=== PATIENT | male | born 1970 | race Hispanic/Latino ===

== ENCOUNTER 2017-12-26 06:26 | Inpatient (IN) | payer OTHER ==
[2017-12-19 14:06] VITALS: BMI 26.6
[2017-12-26] MEDS ORDERED: Phenylephrine 10 mg/ml Inj ONE ×2 (07:19→10:51)
[2017-12-26] MEDS ORDERED: Etomidate 20 mg/10ml Inj IV ONE (07:19)
[2017-12-26] MEDS ORDERED: Rocuronium 10 mg/ml (5 ml) ONE ×3 (07:19→11:35)
[2017-12-26] MEDS ORDERED: Propofol 10 mg/ml Inj (20 ML) ONE (07:19)
[2017-12-26] MEDS ORDERED: Succinylcholine 200 mg/10 ml Inj IV ONE (07:19)
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
[2017-12-26] MEDS ORDERED: Bupivacaine HCl 0.5% PF (30 ml) Inj ONE (07:27)
[2017-12-26] MEDS ORDERED: Neostigmine 1:1000 (1 mg/ml) Inj ONE (07:28)
[2017-12-26] MEDS ORDERED: ceFAZolin IV 2 gm in Dextrose 4 GM/100 ML BAG IVPB ONE (07:30)
[2017-12-26] MEDS ORDERED: Absorbable Gelatin Sponge Size 100 ONE (07:30)
[2017-12-26] MEDS ORDERED: Bacitracin Ointment 30 GM TUBE ONE (07:31)
[2017-12-26] MEDS ORDERED: Thrombin Topical 5,000 Int Units Spray Kit ONE (07:31)
[2017-12-26] MEDS ORDERED: EPINEPHrine 1 mg/ml (1:1000) Inj ONE (07:36)
[2017-12-26 07:57] LABS: HEMOGLOBIN 13.5 g/dL (12.0-18.0); MEAN CELL VOLUME 100.2 fl (80.0-94.0); MEAN CORPUSCULAR HEMOGLOBIN 34.7 pg (27.0-31.0); MEAN CORPUSCULAR HGB CONC 34.6 g/dL (33.0-37.0); RBC 3.89 Mil/uL (4.40-5.90); RED CELL DISTRIBUTION WIDTH 12.8 % (11.5-14.5); WHITE BLOOD COUNT 4.2 K/uL (4.8-10.8)
[2017-12-26] MEDS ORDERED: Esmolol 100 mg/10ml Inj IV ONE (08:15)
[2017-12-26] MEDS ORDERED: Midazolam 2 MG/2 ML VIAL ONE (08:21)
[2017-12-26] MEDS ORDERED: Tranexamic Acid 1,000 MG in Sodium Chloride 0.9% 100 ML IVPB SCH (08:35)
[2017-12-26] MEDS ORDERED: Sevoflurane - Inhalation Anesthetic Liq (250 ml) ONE (09:00)
[2017-12-26] MEDS ORDERED: Lactated Ringer's 1,000 ML IV ONE ×5 (10:18→14:50)
[2017-12-26] MEDS ORDERED: Sodium Chloride 0.9% 1,000 ML IV SCH (12:45)
[2017-12-26] MEDS ORDERED: HYDROmorphone 0.5 mg/0.5 ml ISec IVP PRN (12:55)
--- NOTE | 2017-12-26 12:58 | PCM.ANESB1 ---
Interscalene Block - Brachial Plexus Date of Procedure: 12/26/17 Anesthesiologist: Andreas Pre-Procedure Diagnosis: Right shoulder severe OA Post-Procedure Diagnosis: Same Procedure Performed: Interscalene Block of Brachial Plexus Right - Procedure Interscalene Block of Brachial Plexus: This procedure was explained to the patient that it is for post-operative pain management. Consent was obtained after a thorough discussion with the patient regarding the benefits and possible complications of local anesthetic block of the Brachial Plexus at the Interscalene area. The patient was brought to the Operating Room and standard monitors were applied. Time out was held with the circulating nurse to confirm the correct surgery and appropriate block. After applying Oxygen by nasal cannula and administering IV Sedation, the patient's head was gently rotated away from the __right____operative shoulder and the anterior scalene groove was carefully palpated. The ultrasound transducer was then applied to the skin in the transverse plane and the brachial plexus was visualized lateral to the carotid artery and in between the anterior and middle scalene muscles. After identification,the anterior lateral portion of the neck was prepped with Chloraprep and Lidocaine 1% was injected subcutaneously for topical analgesia. At this point, a # 22 gauge Stimuplex 2 inches insulated needle was inserted into the interscalene groove and directed in a caudal and midline direction. The needle was inserted lateral to the ultrasound transducer in-plane towards the brachial plexus in a [id number] direction. Needle advancement was performed carefully under direct ultrasound visualization. Nerve stimulator was used and twitched of the affected extremity including the hand brachialis muscles, biceps and the deltoid was obtained at a current of _0.4____MA. After repeated negative aspiration,__2___cc of__0.5%___,__bupivicaine with 1:200,000 epinephrine were injected and this was followed with __28___cc of __0.5___% ___bupivicaine with 1:200,000 epinephrine . Under ultrasound guidance the local anesthetics were observed surrounding the roots of the brachial plexus. The needle was removed intact. The patient had stable vital signs, was conscious and in no apparent distress. The patient tolerated the interscalene block of the bracheal plexus well with stable vital signs and was prepared for subsequent surgery.
--- NOTE | 2017-12-26 14:22 | RAD ---
PROCEDURE: Radiographs of the Right Shoulder HISTORY: s/p R TSR COMPARISON: No prior. FINDINGS: The patient is status post total right shoulder arthroplasty with prosthetic components seen in good alignment. A small amount expected air and fluid seen adjacent to the surgical bed IMPRESSION: Status post total right shoulder arthroplasty.
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
[2017-12-26] MEDS: Lactated Ringer's 1,000 ML IV SCH ×2 (15:00→23:43)
--- NOTE | 2017-12-26 15:55 | PCM.SURG1 ---
Surgeon's Initial Post Op Note - Surgeon's Notes Surgeon: Sherrie [employer] Operations Manager: SERA Hwang/ 2nd assist Oseas Koo PA-C Type of Anesthesia: General Endo, Block Regional Anesthesia Administered By: DR Jacques Pre-Operative Diagnosis: post- traumatic derangement R shoulder. post traumatic arthritis R shoulder Operative Findings: SEVERE glenohumeral arthritis R shoulder. rotator cuff tear R shoulder. loose bodies R shoulder/osteophytes Post-Operative Diagnosis: same Operation Performed: R TSR. repair rotator cuff tear. biceps tenodesis. arthrotomy/excision loose bodies Specimen/Specimens Removed: tendon/bone/losse bodies Estimated Blood Loss: EBL {In ML}: 60 Blood Products Given: N/A Drains Used: No Drains Post-Op Condition: Good Date of Surgery/Procedure: 12/26/17 Time of Surgery/Procedure: 09:35 (time in room/anaesthesia indUCTION time 9:35)
[2017-12-26] MEDS: ceFAZolin IV 2 gm in Dextrose 2 GM/50 ML BAG IVPB SCH ×2 (17:05→23:42)
[2017-12-26] MEDS: Oxycodone/Acetaminophen 5/325 mg Tab PO PRN ×2 (17:34→21:40)
[2017-12-27 00:06] VITALS: RESP 18
[2017-12-27] MEDS: Oxycodone/Acetaminophen 5/325 mg Tab PO PRN ×2 (04:25→07:48)
[2017-12-27] MEDS ORDERED: HYDROmorphone 0.5 mg/0.5 ml ISec IVP PRN ×2 (05:15→08:09)
[2017-12-27 05:37] LABS: BLOOD UREA NITROGEN 18 mg/dl (9-20); CALCIUM 8.8 mg/dL (8.4-10.2); GFR AFRICAN-AMERICAN > 60; GFR NON-AFRICAN AMERICAN > 60
[2017-12-27 05:39] LABS: HEMOGLOBIN 12.8 g/dL (12.0-18.0); MEAN CELL VOLUME 100.3 fl (80.0-94.0); MEAN CORPUSCULAR HGB CONC 34.9 g/dL (33.0-37.0); RBC 3.64 Mil/uL (4.40-5.90); RED CELL DISTRIBUTION WIDTH 12.9 % (11.5-14.5); WHITE BLOOD COUNT 11.2 K/uL (4.8-10.8)
[2017-12-27 05:47] LABS: INR 1.1 (0.9-1.2); PARTIAL THROMBOPLASTIN TIME 25.4 Seconds (25.6-37.1); PROTHROMBIN TIME 11.7 Seconds (9.8-13.1)
--- NOTE | 2017-12-27 07:39 | CP.PCM.PN ---
Subjective - Date & Time of Evaluation Date of Evaluation: 12/27/17 Time of Evaluation: 07:39 - Subjective Subjective: Patient seen and examined with Dr. Balderas. Pain is severe beginning this AM due to nerve block wearing off, not controlled with current pain regimen. No acute events overnight. Objective - Vital Signs/Intake and Output Vital Signs (last 24 hours): Temp Pulse Resp BP Pulse Ox 97.5 F L 79 18 156/101 H 98 12/27/17 05:07 12/27/17 05:50 12/27/17 05:07 12/27/17 05:50 12/27/17 05:07 - Medications Medications: Current Medications Acetaminophen (Tylenol 325mg Tab) 650 mg PO Q4 PRN PRN Reason: Fever 101 degrees fahrenheit Docusate Sodium (Colace) 100 mg PO BID [facility] Last Admin: 12/26/17 17:33 Dose: 100 mg Hydromorphone HCl (Dilaudid) 1 mg IVP Q4 PRN PRN Reason: Pain, severe (8-10) Last Admin: 12/27/17 05:18 Dose: 1 mg Tranexamic Acid 1,000 mg/ (Sodium Chloride) 110 mls @ 10 mls/min IVPB Q2 [facility] Sodium Chloride (Sodium Chloride 0.9%) 1,000 mls @ 80 mls/hr IV .[id number] [facility] Stop: 12/27/17 12:36 Lactated Ringer's (Lactated Ringer's) 1,000 mls @ 100 mls/hr IV .Q10H [facility] Last Admin: 12/26/17 23:43 Dose: 100 mls/hr Oxycodone/Acetaminophen (Percocet 5/325 Mg Tab) 2 tab PO Q4 PRN PRN Reason: Pain, moderate (4-7) Stop: 12/29/17 12:36 Last Admin: 12/27/17 04:25 Dose: 2 tab - Labs Labs: 12/27/17 04:20 12/27/17 04:20 PT 11.7 Seconds (9.8-13.1) 12/27/17 04:20 INR 1.1 (0.9-1.2) 12/27/17 04:20 APTT 25.4 Seconds (25.6-37.1) L 12/27/17 04:20 - Extremities Exam Additional comments: RUE: shoulder in immobilizer, Dressings CDI, mild swelling, no drainage sensation intact AXN/MN/UN/RN motor intact MN/UN/RN radial pulse intact comps soft NT Assessment and Plan (1) Post-traumatic osteoarthritis, right shoulder Assessment & Plan: POD#1 s/p R TSR -recommend pain mgmt consult for repeat nerve block and pain med adjustments -strict shoulder imm, not to be removed -orthopedically stable to discharge home once cardiac cleared and pain controlled -f/u in Dr. Balderas's office this Saturday 12/30 -above case and plan d/w Dr. Balderas in agreement Status: Acute
[2017-12-27] MEDS ORDERED: HYDROmorphone 0.5 mg/0.5 ml ISec IVP STA (08:07)
[2017-12-27 08:20] VITALS: O2SAT 96
[2017-12-27] MEDS ORDERED: Enoxaparin 40 mg Syringe SC SCH (09:00)
--- NOTE | 2017-12-27 09:08 | CP.PCM.PN ---
Subjective - Date & Time of Evaluation Date of Evaluation: 12/27/17 Time of Evaluation: 08:15 - Subjective Subjective: NO CHEST PAIN OR SOB SEVERE PAIN AT RIGHT SHOULDER SURGICAL SITE Objective - Vital Signs/Intake and Output Vital Signs (last 24 hours): Temp Pulse Resp BP Pulse Ox 98.2 F 55 L 18 156/101 H 96 12/27/17 08:20 12/27/17 08:20 12/27/17 08:20 12/27/17 05:50 12/27/17 08:20 - Medications Medications: Current Medications Acetaminophen (Tylenol 325mg Tab) 650 mg PO Q4 PRN PRN Reason: Fever 101 degrees fahrenheit Docusate Sodium (Colace) 100 mg PO BID [facility] Last Admin: 12/26/17 17:33 Dose: 100 mg Hydromorphone HCl (Dilaudid) 1 mg IVP Q4 PRN PRN Reason: Pain, severe (8-10) Last Admin: 12/27/17 05:18 Dose: 1 mg Hydromorphone HCl (Dilaudid) 0.5 mg IVP Q5M PRN PRN Reason: Pain, moderate (4-7) Stop: 12/27/17 10:09 Sodium Chloride (Sodium Chloride 0.9%) 1,000 mls @ 80 mls/hr IV .[id number] [facility] Stop: 12/27/17 12:36 Lactated Ringer's (Lactated Ringer's) 1,000 mls @ 100 mls/hr IV .Q10H [facility] Last Admin: 12/26/17 23:43 Dose: 100 mls/hr Oxycodone/Acetaminophen (Percocet 5/325 Mg Tab) 2 tab PO Q4 PRN PRN Reason: Pain, moderate (4-7) Stop: 12/29/17 12:36 Last Admin: 12/27/17 07:48 Dose: 2 tab - Labs Labs: 12/27/17 04:20 12/27/17 04:20 PT 11.7 Seconds (9.8-13.1) 12/27/17 04:20 INR 1.1 (0.9-1.2) 12/27/17 04:20 APTT 25.4 Seconds (25.6-37.1) L 12/27/17 04:20 - Respiratory Exam Respiratory Exam: Clear to Ausculation Bilateral - Cardiovascular Exam Cardiovascular Exam: REGULAR RHYTHM, +S1, +S2 - Extremities Exam Additional comments: NO EDEMA IN LE - Additional Findings Additional findings: PLATE COLORER NSR Assessment and Plan - Assessment and Plan (Free Text) Assessment: S/P TOTAL RIGHT SHOULDER REPLACEMENT HOC HISTORY OF HYPERTENSION PRIOR TO WEIGHT LOSS Plan: CONTINUE IV FLUIDS AND PAIN MEDICATIONS
--- NOTE | 2017-12-27 09:32 | CARD ---
APPROVED REPORT EKG Measurement Heart [id number] <Conclusion> Sinus bradycardia Nonspecific intraventricular conduction delay Nonspecific T wave abnormality Abnormal ECG
--- NOTE | 2017-12-27 09:51 | CP.PCM.DIS ---
Provider - Provider Date of Admission: 12/26/17 08:52 Attending physician: Timi Purdy Primary care physician: Car Balderas III, MD Consults: ortho consult cardiology consult Time Spent in preparation of Discharge (in minutes): 15 Hospital Course - Lab Results Lab Results: Most Recent Lab Values WBC 11.2 K/uL (4.8-10.8) H D 12/27/17 04:20 RBC 3.64 Mil/uL (4.40-5.90) L 12/27/17 04:20 Hgb 12.8 g/dL (12.0-18.0) 12/27/17 04:20 Hct 36.5 % (35.0-51.0) 12/27/17 04:20 MCV 100.3 fl (80.0-94.0) H 12/27/17 04:20 MCH 35.0 pg (27.0-31.0) H 12/27/17 04:20 MCHC 34.9 g/dL (33.0-37.0) 12/27/17 04:20 RDW 12.9 % (11.5-14.5) 12/27/17 04:20 Plt Count 126 K/uL (130-400) L 12/27/17 04:20 PT 11.7 Seconds (9.8-13.1) 12/27/17 04:20 INR 1.1 (0.9-1.2) 12/27/17 04:20 APTT 25.4 Seconds (25.6-37.1) L 12/27/17 04:20 Sodium 137 mmol/l (132-148) 12/27/17 04:20 Potassium 4.3 MMOL/L (3.6-5.0) 12/27/17 04:20 Chloride 103 mmol/L (98-107) 12/27/17 04:20 Carbon Dioxide 25 mmol/L (22-30) 12/27/17 04:20 Anion Gap 13 (10-20) 12/27/17 04:20 BUN 18 mg/dl (9-20) 12/27/17 04:20 Creatinine 1.1 mg/dl (0.8-1.5) 12/27/17 04:20 Est GFR ( Amer) > 60 12/27/17 04:20 Est GFR (Non-Af Amer) > 60 12/27/17 04:20 Random Glucose 108 mg/dL (75-110) 12/27/17 04:20 Calcium 8.8 mg/dL (8.4-10.2) 12/27/17 04:20 Blood Type A POSITIVE 12/26/17 07:39 Blood Type Confirm A POSITIVE 12/26/17 08:35 Antibody Screen Negative 12/26/17 07:39 Crossmatch See Detail 12/26/17 07:39 BBK History Checked No verified bt 12/26/17 07:39 - Hospital Course Hospital Course: 47 years old male with hx of Hypertrophic Obstructive Cardiomyopathy, Back surgery gastric Sleeve and Osteoarthritis of the right shoulder frankie admitted for elective right total shoulder replacement after failing conservative treatment . Ortho, pain management and cardiology were consulted .Patient underwent right total shoulder replacement surgery. Nerve block was applied during surgery and post op day 1 for pain control. Patient cleared by ortho for discharge home. Started on dilaudid 4 mg po Q4 PRN for severe pain and Percost 5/325 mg po Q6 prn for moderate pain . Counselled patient to stop taking any other pain medications. Counselled on sedative effect of opioids . he will need to follow up with Dr. Balderas 12/30 at his office.Will discharge patient home 1. Osteoarthritis right shoulder s/p total shoulder replacement had nerve block during surgery and post op anesthesia consulted for pain management Will d/c on dilaudid and percoset prn Follow up with Dr. Balderas post op 12/30 2. Uncontrolled HTN most likely secondary to pain Given Hydralazine 10 mg IV x 1 dose pain management Follow up with PMD 3. Intractable pain to right shoulder nerve black and narcotics PRN 4. Hypertrophic Obstructive Cardiomyopathy cardiology consult with Dr. Law appreciated Follow up with Director Acute Dr Chuy Montilla on discharge Discharge Exam - Head Exam Head Exam: ATRAUMATIC, NORMAL INSPECTION, NORMOCEPHALIC - Eye Exam Eye Exam: PERRL Pupil Exam: NORMAL ACCOMODATION - ENT Exam ENT Exam: Mucous Membranes Moist, Normal Exam - Neck Exam Neck exam: Full Rom, Normal Inspection - Respiratory Exam Respiratory Exam: Clear to PA & Lateral, NORMAL BREATHING PATTERN. absent: Rales, Rhonchi, Wheezes - Cardiovascular Exam Cardiovascular Exam: REGULAR RHYTHM, RRR, +S1, +S2. absent: JVD - GI/Abdominal Exam GI & Abdominal Exam: Normal Bowel Sounds, Soft. absent: Distended, Guarding, Rebound, Tenderness - Rectal Exam Rectal Exam: Deferred - Extremities Exam Extremities exam: normal capillary refill, normal inspection, pedal pulses present Additional comments: left arm on sling moving his fingers, pulses intact capillary refill intact warm to touch - Back Exam Back exam: NORMAL INSPECTION - Neurological Exam Neurological exam: Alert, CN II-XII Intact, Oriented x3, Reflexes Normal - Psychiatric Exam Psychiatric exam: Normal Affect, Normal Mood - Skin Skin Exam: Dry, Intact, Normal Color, Warm Discharge Plan - Discharge Medications Prescriptions: HYDROmorphone [Dilaudid] 4 mg PO Q4 PRN #20 tab PRN Reason: Pain, Severe (8-10) oxyCODONE/Acetaminophen [Percocet 5/325 mg Tab] 1 tab PO Q6 PRN #20 tab PRN Reason: Pain, Moderate (4-7) - Follow Up Plan Condition: GOOD Disposition: HOME/ ROUTINE Patient education suggested?: Yes Referrals: Car Balderas III, MD [Primary Care Provider] -
--- NOTE | 2017-12-27 10:34 | CP.PCM.CON ---
History of Present Illness - History of Present Illness History of Present Illness: This is a 47 year old gentleman POD #1 following a right total shoulder replacement who experienced severe pain after the resolution of his right interscalene block this morning. Review of Systems - Review of Systems All systems: reviewed and no additional remarkable complaints except Review of Systems: Intractable pain - Constitutional Constitutional: As Per HPI - EENT Eyes: As Per HPI - Cardiovascular Cardiovascular: As Per HPI - Respiratory Respiratory: As Per HPI Additional comments: No SOB reported after right interscalene block on 12/26/17 - Musculoskeletal Musculoskeletal: Other Additional comments: Severe right shoulder pain at rest and exacerbated by movement. Past Patient History - Past Medical History & Family History Past Medical History?: Yes Past Family History: Reviewed and not pertinent - Past Social History Smoking Status: Former Smoker Chewing Tobacco Use: No Cigar Use: No Alcohol: Social Drugs: Denies Home Situation {Lives}: With Family - CARDIAC Hx Cardiac Disorders: Yes (HOC) Hx Hypertension: Yes (Resolved after gastric bypass) - PULMONARY Hx Respiratory Disorders: No - NEUROLOGICAL Hx Neurological Disorder: Yes Other/Comment: Ulnar neuropathy - HEENT Hx HEENT Problems: No - RENAL Hx Chronic Kidney Disease: No - ENDOCRINE/METABOLIC Hx Endocrine Disorders: No - HEMATOLOGICAL/ONCOLOGICAL Hx Blood Disorders: No - INTEGUMENTARY Hx Dermatological Problems: No - MUSCULOSKELETAL/RHEUMATOLOGICAL Hx Musculoskeletal Disorders: Yes Hx Back Pain: Yes Hx Osteoarthritis: Yes Other/Comment: Lumbar fusion - GASTROINTESTINAL Hx Gastrointestinal Disorders: No - GENITOURINARY/GYNECOLOGICAL Hx Genitourinary Disorders: No - PSYCHIATRIC Hx Psychophysiologic Disorder: No - SURGICAL HISTORY Hx Surgeries: Yes Hx Appendectomy: Yes Hx Arthroscopy: Yes (right shoulder-2011 arthroscopic) Hx Gastric Bypass Surgery: Yes Hx Musculoskeletal Surgery: Yes (L-spine surgery) - ANESTHESIA Hx Anesthesia: Yes Hx Anesthesia Reactions: No Meds Home Medications: Home Medication List Medication Instructions Recorded Confirmed Type Oxycodone HCl [Oxycontin] 10 mg PO Q12 #10 tab.er.12h 12/27/17 Rx oxyCODONE [oxyCODONE Immediate 10 mg PO Q6 PRN #20 tab 12/27/17 Rx Release Tab] Allergies/Adverse Reactions: Allergies Allergy/AdvReac Type Severity Reaction Status Date / Time bacitracin Allergy RASH Verified 12/19/17 14:06 - Medications Medications: Current Medications Acetaminophen (Tylenol 325mg Tab) 650 mg PO Q4 PRN PRN Reason: Fever 101 degrees fahrenheit Docusate Sodium (Colace) 100 mg PO BID [facility] Last Admin: 12/26/17 17:33 Dose: 100 mg Hydromorphone HCl (Dilaudid) 1 mg IVP Q4 PRN PRN Reason: Pain, severe (8-10) Last Admin: 12/27/17 05:18 Dose: 1 mg Hydromorphone HCl (Dilaudid) 0.5 mg IVP Q5M PRN PRN Reason: Pain, moderate (4-7) Stop: 12/27/17 10:09 Sodium Chloride (Sodium Chloride 0.9%) 1,000 mls @ 80 mls/hr IV .[id number] [facility] Stop: 12/27/17 12:36 Lactated Ringer's (Lactated Ringer's) 1,000 mls @ 100 mls/hr IV .Q10H [facility] Last Admin: 12/26/17 23:43 Dose: 100 mls/hr Oxycodone/Acetaminophen (Percocet 5/325 Mg Tab) 2 tab PO Q4 PRN PRN Reason: Pain, moderate (4-7) Stop: 12/29/17 12:36 Last Admin: 12/27/17 07:48 Dose: 2 tab Home medications: Vicodin 5/325 1-2 tabs daily Nucynta 75 mg BID Physical Exam - Extremities Exam Additional comments: RUE in adduction sling. Severe right shoulder pain. Unable to examine due to pain - Back Exam Back exam: NORMAL INSPECTION Results - Vital Signs Recent Vital Signs: Last Vital Signs Temp 98.2 F 12/27/17 08:20 Pulse 55 L 12/27/17 08:20 Resp 18 12/27/17 08:20 BP 156/101 H 12/27/17 05:50 Pulse Ox 96 12/27/17 08:20 - Labs Result Diagrams: 12/27/17 04:20 12/27/17 04:20 Labs: Laboratory Results - last 24 hr 12/26/17 12/27/17 12/27/17 08:35 04:20 04:20 WBC 11.2 H D RBC 3.64 L Hgb 12.8 Hct 36.5 MCV 100.3 H MCH 35.0 H MCHC 34.9 RDW 12.9 Plt Count 126 L PT 11.7 INR 1.1 APTT 25.4 L Sodium Potassium Chloride Carbon Dioxide Anion Gap BUN Creatinine Est GFR ( Amer) Est GFR (Non-Af Amer) Random Glucose Calcium Blood Type Confirm A POSITIVE 12/27/17 04:20 WBC RBC Hgb Hct MCV MCH MCHC RDW Plt Count PT INR APTT Sodium 137 Potassium 4.3 Chloride 103 Carbon Dioxide 25 Anion Gap 13 BUN 18 Creatinine 1.1 Est GFR ( Amer) > 60 Est GFR (Non-Af Amer) > 60 Random Glucose 108 Calcium 8.8 Blood Type Confirm - EKG Data Rate: Bradycardia (Hypertension treated by primary team prior to nerve block) Assessment & Plan - Assessment and Plan (Free Text) Assessment: 47 y/o gentleman POD #1 following right total shoulder replacement with severe right shoulder following resolution of peripheral nerve block this morning. Plan: Discussed with Dr. Carmona from pain management. Will repeat right interscalene block following confirmed NPO status. Further recommendations to follow for discharge pain control. Patient instructed to follow up with his own pain management physician, Dr. Hagan, from [facility] within one week of discharge
[2017-12-27] MEDS: Lactated Ringer's 1,000 ML IV SCH (11:41)
[2017-12-27 12:36] VITALS: BP 174/96; PULSE 68; TEMP 97.3
--- NOTE | 2017-12-28 10:02 | OP ---
PROCEDURE DATE: 12/26/2017 PREOPERATIVE DIAGNOSES: 1. Severe posttraumatic osteoarthritis to the right shoulder. 2. Rotator cuff tear, less than 1 cm. 3. Biceps tendon attenuation. 4. Glenohumeral arthritis, osteophytes and loose bodies, right shoulder. PROCEDURES: 1. Complex right total shoulder replacement arthroplasty, anatomic type. 2. Biceps tenodesis. 3. Rotator cuff repair. 4. Arthrotomy, excision of loose bodies, and osteophytes. SURGEON: Car Balderas MD. JURY CONSULTANT: Charito Valencia, certified registered nursing [employer]. SECOND PRINT LINE FEEDER: Oseas Koo PA-C. TYPE OF ANESTHESIA: General endotracheal anesthesia and regional block. ANESTHESIA ADMINISTERED BY: Julio Johns MD. COMPLICATIONS: No complications. DRAINS: No drains. OPERATIVE INDICATION: Car Long is a 47-year-old gentleman who has been followed conservatively for over 2 years in my practice. The patient has severe posttraumatic degenerative osteoarthritis to the right shoulder. The patient had failed conservative management consisting of intra-articular injection, anti-inflammatory medication and therapy. Pros, cons, risks, and benefits of surgical approach were discussed. The possibility of mechanical failure, infection, thromboembolic disease, secondary or tertiary surgery was discussed. The patient can no longer withstand the discomfort. OPERATIVE FINDINGS: 1. Severe glenohumeral arthritis, right shoulder with osteophyte formation on the glenoid and the humerus; rotator cuff tear, right shoulder; loose bodies, right shoulder; osteophytes and aforementioned biceps attenuation. OPERATIONS PERFORMED: 1. Right total shoulder replacement arthroplasty, anatomic type. 2. Biceps tenodesis. 3. Rotator cuff repair. 4. Arthrotomy, excision of loose bodies. SPECIMENS REMOVED: Tendon bone, loose bodies. BLOOD LOSS: Approximately 60 to 100 mL. BLOOD PRODUCTS: No blood products given. DRAINS: No drains necessary. POSTOPERATIVE CONDITION: Stable. OPERATIVE PROCEDURE: After having obtained informed consent in the above fashion, after satisfactory induction of rhe regional scalene block and general anesthesia by Dr. Johns, after having identified side and site of the procedure and a critical pause/time-out, after sterilely prepping and draping and after checking all bony positioning, all bony prominences were well padded, the right upper extremity having been prepped and free-draped in the usual fashion for upper extremity surgery. An incision was described from the distal third of the clavicle extending lateral to the coracoid process to the point of the deltoid insertion. The skin incision was insufflated with a solution of 1:1000 epinephrine in 200 mL of saline. The skin incision was carried down through the skin and subcutaneous tissue. Dissection was carried out medially and laterally identifying the deltopectoral interval. The deltopectoral interval was identified and using the Metzenbaum scissors, the cephalic vein was mobilized. The underlying clavipectoral fascia was controlled with hemostasis, controlled with the Aquamantys. This having been accomplished, a modified pediatric Patrick retractor was placed. With externally rotating the site of the extreme contracture of external rotation, and at this point in time, a capsule release was necessary. The first step in that after identifying the rotator cuff tear was identifying a point approximately 1 cm lateral to the lesser tuberosity. An incision was described using electrocautery and further external rotation and great care to be monitoring the position of the axillary nerve. With external rotation, the rotator cuff capsular flap was developed within the area of rotator cuff tear. This was found to be adhesed, it was peeled back and tagged with Arthrex stay sutures. With progressive external rotation, the shoulder was dislocated. The biceps tendon was released and a portion of the rotator cuff was elevated from the humeral side for mobilization. This having been accomplished, the shoulder having been dislocated, all . At this point in time, the Hohmann retractors were placed. The Hohmann retractors having been placed, the proximal humerus having been identified, the intramedullary canal was found. This having been accomplished with the intramedullary canal found, the reaming was accomplished and the intramedullary cutting guide was placed in the appropriate retroversion as guided by the guide patricia through external rotation of the forearm. This having been accomplished, the humeral head osteotomy was accomplished, several more millimeters of bone were taken from the humeral head. There was no contracture. At this point in time, contractures having been released, a laminar analytics developer was placed in the wound and the capsule was placed on stretch and the posterior capsule was released. Hemostasis was controlled with the Aquamantys. This having been accomplished, capsular contractures having been released, the humeral cut was protected with the plate. At this point in time, the glenoid was exposed. There was found to be loose bodies and traction osteophyte at the superior aspect of the glenoid. The traction osteophyte was addressed in the fracture of the glenoid, osteophyte was addressed above the anatomy of the glenoid. We used a combination of the bur and a quarter-inch curved osteotome. The traction osteophyte was removed. There were loose bodies and they were removed as well in the glenohumeral joint. This having been accomplished, there was found to be exuberant osteophytes on the anterior aspect of the glenoid. It should be noted that the glenoid preoperative planning had been accomplished, and the CT scan evidence of 6 degrees of retroversion. This having been accomplished, the wound was thoroughly irrigated. The osteophytes were debrided carefully using a curved osteotome. Using a combination of the curved osteotome and the bur, glenoplasty was accomplished. An open treatment of the glenoid fracture in the region of the osteophyte was accomplished. This having been accomplished, the glenoid was exposed with the appropriate retractors anteriorly and posteriorly and then the capsule had been released, the labrum was excised, and further loose bodies and osteophytes were removed. The osteophytes in the area of the humeral head had been removed both with a half-inch curved osteotome and with the bur. This having been accomplished, with the glenoid having been exposed, the glenoid guide pin was placed with the aid of a standard guide. This having been accomplished, a pin was introduced and reaming commences with the reamer. Using the bur, the articular surface of the glenoid was carefully denuded of articular cartilage and planed with the reamer. The superior aspect in the area of the glenoid osteoplasty was accomplished as well. The reaming having been accomplished with the reamer, the central peg was reamed and at this point in time the guide pin was removed. The guide pin position was found to be acceptable, and at this point in time, the standard glenoid, baseplate was impacted, it was impacted firmly. Autograft bone grafting was accomplished to the area because of the irregularities in the glenoid. The drilling was accomplished with the screw holes, and a 20/25 mm screw respectively was employed. The baseplate was found to be solid. At this point in time, the polyethylene was impacted. The glenoid was found to be stable and in acceptable position. This having been accomplished, the wound was thoroughly irrigated. The humerus was again dislocated, further osteophytes were debrided. Sequential reaming was carried out with an 18 mm reamer. At this point in time, the -3 head was employed, 44 mm x 14 mm. The shoulder was reduced and found to be stable in all planes. There was no evidence of instability. Contractures had been released. There was still restriction in total elevation and indeed the patient had been told that in all medical probability, this patient will not achieve full range of motion even with aggressive physical therapy. This was discussed with the patient preoperatively in the holding area and also postoperatively. This having been accomplished, the trialing having been accomplished, the definitive glenoid stem was prepared and impacted with the 44 mm head, -3 neck, the 18 mm stem was impacted, the head was employed. The shoulder was reduced and found to be stable in planes still on elevation, external and internal rotation. At this point in time, with the upper extremity in neutral elevation and approximately 10 degrees of internal rotation, the rotator cuff was repaired further with Arthrex #2 FiberWire sutures. The repair was found to be excellent. At this point in time, the biceps tendon was tenodesed through the rotator cuff repair, and the intra-articular biceps tenodesis was accomplished. Rotator cuff having been repaired, the wound was thoroughly irrigated. Hemostasis was controlled with the Aquamantys. Bone wax had been applied to the glenoid, closures in layers, the deltopectoral interval with 0 Quill followed by 0 Quill and 2-0 Quill plastic closure. Again irrigation had been accomplished with Irrisept to diminish chance of infection. Compression dressing, sling and swathe shoulder immobilizers were employed. Postoperative x-rays showed an acceptable position of the construct. OPERATIVE PROCEDURES: 1. Right total shoulder replacement arthroplasty. 2. Open treatment of glenoid fractures/osteophyte. 3. Biceps tenodesis, intra-articular. 4. Right rotator cuff repair. 5. Arthrotomy, excision of loose bodies, right shoulder. It should be noted that both MATT Koo and Charito Valencia were necessary to the completion of this operative goal. The right shoulder is the appropriate upper extremity. Car Balderas MD [facility] # [id number]
== END 2017-12-27 14:16 | disposition home or self-care (01) | DRG 483 ==
LOC: H.OPSURG 06:26 → H.TEL 08:52
PROVIDERS: ADMIT Internal Medicine; ATTEND Internal Medicine
PROC: 3E0T3BZ Introduction of Anesthetic Agent into Peripheral Nerves and Plexi, Percutaneous Approach (ICD-10-PCS; 2017-12-26)
PROC: 3E0T33Z Introduction of Anti-inflammatory into Peripheral Nerves and Plexi, Percutaneous Approach (ICD-10-PCS; 2017-12-26)
PROC: 0RRJ0JZ Replacement of Right Shoulder Joint with Synthetic Substitute, Open Approach (ICD-10-PCS; principal; 2017-12-26 09:15)
PROC: 0LS30ZZ Reposition Right Upper Arm Tendon, Open Approach (ICD-10-PCS; 2017-12-26 09:15)
DX: M19.111 Post-traumatic osteoarthritis, right shoulder (principal); M24.011 Loose body in right shoulder; I42.1 Obstructive hypertrophic cardiomyopathy; I11.9 Hypertensive heart disease without heart failure; E78.5 Hyperlipidemia, unspecified; Z98.84 Bariatric surgery status; Z87.891 Personal history of nicotine dependence; Z88.3 Allergy status to other anti-infective agents